=== PATIENT | female | born 1995 | race Caucasian/White ===

== ENCOUNTER 2018-04-14 06:00 | Inpatient (IN) | payer MEDICAID ==
[2018-04-14] MEDS ORDERED: CARBOPROST 250 MCG INJ IM ×2 (06:30→09:00)
[2018-04-14] MEDS ORDERED: MISOPROSTOL 200 MCG TAB PR ×2 (06:30→09:00)
[2018-04-14] MEDS ORDERED: METHYLERGONOVINE 0.2 MG INJ IM ×2 (06:30→09:00)
[2018-04-14] MEDS ORDERED: OXYTOCIN 30 UNITS/LR 500 ML IV ×2 (06:30→09:00)
[2018-04-14] MEDS: LACTATED RINGER'S 1,000 ML IV ×3 (06:41→21:10)
[2018-04-14 06:45] LABS: ADD MAN DIFF? NO
[2018-04-14 06:50] LABS: WHITE BLOOD COUNT 9.7 10^3/ul (4.8-10.8)
[2018-04-14 06:50] LABS: BASOPHILS % 0.4 % (0.0-2.0); EOSINOPHILS # 0.2 10^3/ul (0.0-0.5); EOSINOPHILS % 2.5 % (0.0-7.0); HEMATOCRIT 36.2 % (37.0-47.0); HEMOGLOBIN 12.6 g/dl (12.0-16.0); LYMPHOCYTES # 2.5 10^3/ul (0.8-2.9); LYMPHOCYTES % 25.4 % (15.0-51.0); MEAN CORPUSCULAR HEMOGLOBIN 29.9 pg (29.0-33.0); MEAN CORPUSCULAR HGB CONC 34.8 g/dl (32.0-37.0); MEAN CORPUSCULAR VOLUME 85.8 fl (82.0-101.0); MEAN PLATELET VOLUME 9.9 fl (7.4-10.4); MONOCYTE # 0.6 10^3/ul (0.3-0.9); MONOCYTES % 6.3 % (0.0-11.0); NEUTROPHIL # 6.3 10^3/ul (1.6-7.5); NEUTROPHILS % 64.9 % (39.0-77.0); PLATELET COUNT 258 10^3/UL (140-415); RED BLOOD COUNT 4.22 10^6/ul (4.20-5.40); RED CELL DISTRIBUTION WIDTH 13.2 % (11.5-14.5)
[2018-04-14 07:17] LABS: INR 0.93; PARTIAL THROMBOPLASTIN TIME 29.2 Sec (25.0-35.0); PROTIME 12.5 Sec (11.9-14.9)
[2018-04-14] MEDS ORDERED: ONDANSETRON 4 MG INJ (07:39)
[2018-04-14] MEDS ORDERED: METOCLOPRAMIDE 10 MG INJ (07:39)
[2018-04-14] MEDS ORDERED: BUPIVACAINE 0.75%/DEXT (SPINAL) 2 ML INJ (07:40)
[2018-04-14] MEDS ORDERED: morphine SULFATE/PF (10 MG/10 ML) INJ (07:40)
[2018-04-14] MEDS ORDERED: FAMOTIDINE 20 MG INJ (07:40)
[2018-04-14] MEDS: ONDANSETRON 4 MG INJ IV (07:45)
[2018-04-14] MEDS: METOCLOPRAMIDE 10 MG INJ IV (07:45)
[2018-04-14] MEDS: FAMOTIDINE 20 MG INJ IV (07:45)
[2018-04-14] MEDS ORDERED: OXYTOCIN 10 UNIT INJ (07:52)
[2018-04-14] MEDS: CEFAZOLIN 2 GM/50 ML (PMX) 50 ML IV (08:10)
[2018-04-14] MEDS ORDERED: PHENYLephrine (100 MCG/ML) 5ML SYG (08:40)
[2018-04-14] MEDS ORDERED: CEFAZOLIN 2 GM/50 ML (PMX) 50 ML IV (09:00)
[2018-04-14] MEDS: SENNA/DOCUSATE NA (8.6MG/50MG) TAB PO ×2 (09:00→21:00)
[2018-04-14] MEDS ORDERED: NA PHOSPHATE/BIPHOS 133 ML ENEMA PR (09:00)
[2018-04-14] MEDS: OXYTOCIN 30 UNITS/LR 500 ML IV ×2 (09:09→11:41)
[2018-04-14] MEDS ORDERED: HYDROmorphONE (0.2 MG/ML) 10ML SYG IV ×3 (09:30)
[2018-04-14] MEDS ORDERED: DIPHENHYDRAMINE 50 MG INJ IV (09:30)
[2018-04-14] MEDS ORDERED: NALOXONE (0.4 MG/ML) INJ IV (09:30)
[2018-04-14] MEDS ORDERED: ONDANSETRON 4 MG INJ IV ×2 (09:30)
[2018-04-14] MEDS ORDERED: ZOLPIDEM 5 MG TAB PO (09:30)
[2018-04-14] MEDS ORDERED: NALBUPHINE HCL (10 MG/1 ML) INJ IV (09:30)
[2018-04-14] MEDS ORDERED: FENTAnyl 50 MCG/ML VIAL IV ×2 (09:30)
[2018-04-14] MEDS ORDERED: METOCLOPRAMIDE 10 MG INJ IV (09:30)
[2018-04-14] MEDS ORDERED: HYDROmorphONE 0.5 MG/0.5 ML SYG IV ×2 (09:30)
[2018-04-14] MEDS: KETOROLAC 30 MG INJ IV ×3 (10:26→23:37)
[2018-04-14] MEDS: IBUPROFEN 600 MG TAB PO ×2 (12:00→17:47)
[2018-04-14] MEDS: CEFAZOLIN 2 GM/50 ML (PMX) 50 ML IVPB (16:20)
[2018-04-14] MEDS: DIPHENHYDRAMINE 50 MG INJ IV ×2 (16:37→23:37)
[2018-04-14 16:42] LABS: RAPID PLASMA REAGIN NONREACTIVE (NR)
[2018-04-15] MEDS: CEFAZOLIN 2 GM/50 ML (PMX) 50 ML IVPB ×2 (00:14→07:44)
[2018-04-15] MEDS: DIPHENHYDRAMINE 50 MG INJ IV (04:08)
[2018-04-15] MEDS: LACTATED RINGER'S 1,000 ML IV ×3 (05:36→17:55)
[2018-04-15] MEDS: SENNA/DOCUSATE NA (8.6MG/50MG) TAB PO ×2 (09:50→20:58)
[2018-04-15 11:01] LABS: ADD MAN DIFF? NO
[2018-04-15 11:20] LABS: BASOPHILS % 0.4 % (0.0-2.0); EOSINOPHILS # 0.1 10^3/ul (0.0-0.5); EOSINOPHILS % 1.1 % (0.0-7.0); HEMOGLOBIN 11.1 g/dl (12.0-16.0); LYMPHOCYTES % 18.3 % (15.0-51.0); MEAN CORPUSCULAR HEMOGLOBIN 29.4 pg (29.0-33.0); MEAN CORPUSCULAR HGB CONC 33.6 g/dl (32.0-37.0); MEAN CORPUSCULAR VOLUME 87.3 fl (82.0-101.0); MEAN PLATELET VOLUME 10.2 fl (7.4-10.4); MONOCYTE # 0.5 10^3/ul (0.3-0.9); NEUTROPHILS % 74.7 % (39.0-77.0); PLATELET COUNT 252 10^3/UL (140-415); RED BLOOD COUNT 3.78 10^6/ul (4.20-5.40); RED CELL DISTRIBUTION WIDTH 13.9 % (11.5-14.5)
[2018-04-15 11:20] LABS: WHITE BLOOD COUNT 10.7 10^3/ul (4.8-10.8)
[2018-04-15] MEDS: OXYCODONE/ACETAMINOPHEN (5/325) TAB PO ×3 (11:25→21:09)
[2018-04-15] MEDS: LANOLIN 7 GM TUBE TOP (11:25)
[2018-04-16] MEDS: OXYCODONE/ACETAMINOPHEN (5/325) TAB PO ×3 (04:52→22:40)
[2018-04-16] MEDS: SENNA/DOCUSATE NA (8.6MG/50MG) TAB PO ×2 (08:22→20:38)
[2018-04-16] MEDS: IBUPROFEN 600 MG TAB PO ×2 (12:37→17:55)
[2018-04-17] MEDS: IBUPROFEN 600 MG TAB PO ×5 (00:30→23:55)
[2018-04-17] MEDS: SENNA/DOCUSATE NA (8.6MG/50MG) TAB PO ×2 (09:10→20:32)
[2018-04-17] MEDS: OXYCODONE/ACETAMINOPHEN (5/325) TAB PO ×2 (10:27→20:32)
[2018-04-17 15:28] LABS: ADD MAN DIFF? NO
[2018-04-17 15:31] LABS: BASOPHILS % 0.3 % (0.0-2.0); EOSINOPHILS # 0.3 10^3/ul (0.0-0.5); EOSINOPHILS % 4.3 % (0.0-7.0); HEMATOCRIT 32.2 % (37.0-47.0); HEMOGLOBIN 10.4 g/dl (12.0-16.0); LYMPHOCYTES % 29.1 % (15.0-51.0); MEAN CORPUSCULAR HEMOGLOBIN 28.7 pg (29.0-33.0); MEAN CORPUSCULAR HGB CONC 32.3 g/dl (32.0-37.0); MEAN PLATELET VOLUME 9.9 fl (7.4-10.4); MONOCYTE # 0.4 10^3/ul (0.3-0.9); MONOCYTES % 5.6 % (0.0-11.0); NEUTROPHIL # 4.2 10^3/ul (1.6-7.5); NEUTROPHILS % 60.6 % (39.0-77.0); PLATELET COUNT 274 10^3/UL (140-415); RED BLOOD COUNT 3.62 10^6/ul (4.20-5.40); RED CELL DISTRIBUTION WIDTH 13.8 % (11.5-14.5)
[2018-04-17 15:47] LABS: ADD UMIC NO; UR ASCORBIC ACID NEGATIVE (NEGATIVE); UR BILIRUBIN (Dip) NEGATIVE (NEGATIVE); UR BLOOD (Dip) NEGATIVE (NEGATIVE); UR CLARITY CLEAR (CLEAR); UR COLOR YELLOW (YELLOW); UR GLUCOSE (Dip) NEGATIVE (NEGATIVE); UR KETONES (Dip) NEGATIVE (NEGATIVE); UR LEUKOCYTE ESTERASE (Dip) NEGATIVE Leu/ul (NEGATIVE); UR NITRITE (Dip) NEGATIVE (NEGATIVE); UR SPECIFIC GRAVITY (Dip) 1.012 (1.003-1.030); UR TOTAL PROTEIN (Dip) NEGATIVE (NEGATIVE); UR UROBILINOGEN (Dip) NEGATIVE (NEGATIVE)
[2018-04-17 15:53] LABS: INR 0.91; PARTIAL THROMBOPLASTIN TIME 32.2 Sec (25.0-35.0); PROTIME 12.3 Sec (11.9-14.9)
[2018-04-17 15:55] LABS: ALANINE AMINOTRANSFERASE 26 IU/L (13-69); ALBUMIN 2.8 g/dl (3.3-4.9); ALBUMIN/GLOBULIN RATIO 0.93; ALKALINE PHOSPHATASE 110 IU/L (42-121); ANION GAP 10 (8-16); ASPARTATE AMINO TRANSFERASE 22 IU/L (15-46); BILIRUBIN,INDIRECT 0.8 mg/dl (0-1.1); BILIRUBIN,TOTAL 0.8 mg/dl (0.2-1.3); BLOOD UREA NITROGEN 9 mg/dl (7-20); CALCIUM 8.3 mg/dl (8.4-10.2); CARBON DIOXIDE 29 mmol/L (21-31); CHLORIDE 105 mmol/L (97-110); CREATININE 0.59 mg/dl (0.44-1.00); GLUCOSE 88 mg/dl (70-220); POTASSIUM 4.1 mmol/L (3.5-5.1); SODIUM 140 mmol/L (135-144); TOTAL PROTEIN 5.8 g/dl (6.1-8.1); URIC ACID 5.5 mg/dl (3.1-7.9)
[2018-04-17 16:06] LABS: OPIATES Negative (NEGATIVE)
[2018-04-17 16:08] LABS: AMPHETAMINE/METHAMPHETAMINE Negative (NEGATIVE); BARBITURATES Negative (NEGATIVE); BENZODIAZEPINES Negative (NEGATIVE); CANNABINOIDS Negative (NEGATIVE); COCAINE Negative (NEGATIVE)
[2018-04-17 16:10] LABS: FIBRIN SPLIT PRODUCT <10 ug/ml (<10)
[2018-04-18] MEDS: IBUPROFEN 600 MG TAB PO ×2 (05:58→11:33)
[2018-04-18] MEDS: SENNA/DOCUSATE NA (8.6MG/50MG) TAB PO (08:41)
== END 2018-04-18 13:38 | disposition home or self-care (01) | DRG 766 ==
LOC: L-D 06:00 → PP1 11:25
PROVIDERS: Obstetrics & Gynecology
PROC: 10D00Z1 Extraction of Products of Conception, Low, Open Approach (ICD-10-PCS; principal; 2018-04-15)
DX: O34.212 Maternal care for vertical scar from previous cesarean delivery (principal); Z3A.39 39 weeks gestation of pregnancy; Z37.0 Single live birth
CPT/HCPCS: 80053; 80307; 81003; 84560; 85025; 85362; 85384; 85610; 85730; 86592; 86850; 86900; 86901; 99464